=== PATIENT | male | born 1985 | race Caucasian/White ===

== ENCOUNTER 2023-08-27 07:15 | Outpatient (OUT) | payer BC, SELFPAY ==
--- NOTE | 2023-08-27 08:15 | CA_ITS ---
Patient Name Site Name FANNIE GIL [facility] Account No Medical Record Number Age Sex Date Time [id number] [facility]:[id number] M 08/27/2023 07:47 At the Request Of KASIA SHAW ECHOCARDIOGRAM REPORT PROCEDURE: CA ECHO DOPPLER COMPLETE INDICATIONS: Congestive heart failure, stent, hypertension, diabetes, smoker COMPARISON: None. DESCRIPTION: COMPLETE ECHOCARDIOGRAM Real-time transthoracic echocardiography with 2D, M-mode, spectral and color flow Doppler performed. QUALITY: Technical quality was good. 76 , 205#, BSA 2.24 m2 LEFT VENTRICLE: Mild dilatation. Mild eccentric left ventricular hypertrophy. There is diffuse global hypokinesis. Severely reduced systolic function. Estimated left ventricular ejection fraction is 20%. LV EF: Severely reduced left ventricular ejection fraction, (<25%). DIASTOLIC: Grade I diastolic dysfunction. ATRIAL SEPTUM: Visually appears intact. LEFT ATRIUM: Moderate dilatation. RIGHT ATRIUM: Mild dilatation. RIGHT VENTRICLE: Normal chamber size. Normal right ventricular systolic function. TRICUSPID VALVE: Normal mobility and thickness. No stenosis with trivial regurgitation. No evidence of pulmonary hypertension. RVSP 16 mmHg MITRAL VALVE: Mildly thickened with normal mobility. No evidence of mitral valve stenosis. There is no mitral annular calcification. Trivial mitral regurgitation. AORTIC VALVE: Normal trileaflet appearance. No visible sclerosis. Normal leaflet mobility. No evidence of aortic valve stenosis. Trivial aortic regurgitation. AORTIC ROOT: Normal diameter and appearance. PULMONIC VALVE: Normal thickness and mobility. No stenosis. No regurgitation. PERICARDIUM: No evidence of pericardial effusion. IVC: Collapses with inspirations. IVC is normal in size. PLEURA: CONCLUSION: 1. The left ventricle exhibits mild eccentric hypertrophy with diffuse global hypokinesis and severely reduced systolic function. Estimated LVEF is 20%. 2. Normal right ventricular size and systolic function. 3. No significant valvular dysfunction. 4. Normal right-sided pressures. Adult Echocardiography Procedure Report Left Ventricle LVEDD (3.7 - 5.6 cm): 6.16 cm LVESD (2.2 - 4.0 cm): 5.38 cm LVIVS thickness (0.6 - 1.2 cm): 1.24 cm LVPW thickness (0.5 - 1.0 cm): 1.12 cm e': 0.03 m/s E - e': 14.52 LVOT Max Gradient: 2.24 mm[Hg] LVOT Area (cm2): 0.75 m/s Peak Velocity (LVOT): 0.75 m/s Mean Velocity (LVOT): 0.51 m/s LVOT Diameter 2.63 cm Left Atrium LA Volume Index (2D A2C): 47.83 ml/m2 Left Atrium Systolic Dimension: 3.72 cm Mitral Valve MV E to A Ratio: 0.62 Mitral Valve A-Wave Peak Velocity: 0.79 m/s Mitral Valve E-Wave Peak Velocity: 0.49 m/s Right Ventricle Aorta AO Root Diam: 3.65 cm Aortic Valve AoV Area (Peak Britton): 4.23 cm2, 4.23 cm2 AoV Area (VTI): 4.27 cm2, 4.27 cm2 Peak Velocity(Antegrade Flow): 0.96 m/s Peak Gradient(Antegrade Flow): 3.70 mm[Hg] Mean Velocity(Antegrade Flow): 0.71 m/s Mean Gradient(Antegrade Flow): 2.22 mm[Hg] Velocity Time Integral: 17.24 cm Tricuspid Valve Peak Velocity (Regurgitant Flow): 1.82 m/s Pulmonic Valve Peak Velocity: 0.76 m/s Peak Gradient: 2.39 mm[Hg], 2.20 mm[Hg] Right Atrium Right Atrium Systolic Pressure: 78.94 ml, 78.94 ml Dictated by: Terry Britton M.D. on 08/27/2023 at 20:10 Approved by: Terry Britton M.D. on 08/27/2023 at 20:15
== END 2023-08-27 07:16 | disposition home or self-care (01) ==
LOC: CARD 07:16
DX: I25.10 Atherosclerotic heart disease of native coronary artery without angina pectoris (principal); R00.0 Tachycardia, unspecified; I50.9 Heart failure, unspecified; Z86.79 Personal history of other diseases of the circulatory system; I51.7 Cardiomegaly
CPT/HCPCS: 93306; 93356